=== PATIENT | male | born 1950 | race Caucasian/White ===

== ENCOUNTER 2016-07-15 11:57 | Outpatient (CLI) | payer MEDICARE, BC ==
[~2016-07-15] VITALS: Ht 182.9 cm; Wt 108.6 kg
[~2016-07-15 11:57] MED LIST: ASPI-917 PO; CLON0.1T PO; FEXO1TAB8 PO; GEMF600T3 PO; GLIP10TA9 PO; LOSA1TAB96 PO; METF500T4 PO; METO-277 PO; NORMAL SALINE 1,000 ML IV ONE; PANT40TA27 PO; RANI150T12 PO; SERT50TA12 PO; SUCR1ORA3 PO; TEST100V5; TRECIBA SQ
[2016-07-15 12:13] VITALS: Ht 182.9 cm; Wt 108.6 kg
[2016-07-15] MEDS ORDERED: INSU3INS3 SQ (12:43)
[2016-07-15] MEDS ORDERED: MAGN400C PO (12:43)
--- NOTE | 2016-07-15 12:53 | NUR ---
ADMIT PATIENT ADMITTED TO ROOM 122 AT THIS TIME. PATIENT AMBULATED TO ROOM. PATIENT VITALS ARE STABLE AND PATIENT IS ON ROOM AIR. PATIENT DENIES CP, NAUSEA, AND SOA. WILL CONTINUE TO MONITOR.
[2016-07-15 13:02] LABS: HCT - HEMATOCRIT 46.1 % (41-53); HGB - HEMOGLOBIN 15.2 GM/DL (13.5-17.5); MEAN CORPUSCULAR HGB 26.4 UUG (26-34); MEAN CORPUSCULAR VOLUME 80.2 UM3 (80-100); MEAN PLATELET VOLUME 10.6 UM3 (9.4-12.4); RED BLOOD COUNT 5.75 M/MM3 (4.50-5.90); WBC - WHITE BLOOD COUNT 10.8 T/MM3 (4.5-11.0)
[2016-07-15 13:08] LABS: ANION GAP 13 MEQ/L (5-15); BUN/CREATININE RATIO 20 RATIO (6-26); CALCIUM 9.1 MG/DL (8.4-10.2); CHLORIDE 103 MEQ/L (98-107); CO2 - CARBON DIOXIDE 25 MEQ/L (22-30); GLOMERULAR FILTRATION RATE 74; GLUCOSE 159 MG/DL (75-110); POTASSIUM 4.4 MEQ/L (3.6-5); SODIUM 141 MEQ/L (134-144)
[2016-07-15 13:18] LABS: BAND NEUTROPHILS # 0.1 T/MM3; EOSINOPHILS # (MANUAL) 0.1 T/MM3 (0-0.5); LYMPHOCYTES # (MANUAL) 3.8 T/MM3 (1-4.8); METAMYELOCYTES # 0.1 T/MM3; MONOCYTES # (MANUAL) 0.4 T/MM3 (0-0.8); REACTIVE LYMPHOCYTES # 0.2 T/MM3 (0-0); TOTAL CELLS COUNTED 100 %
[2016-07-15] MEDS ORDERED: LIDOCAINE 1% (10mg/ml) 30ml SDV ONE (13:28)
[2016-07-15] MEDS ORDERED: HEPARIN 1,000units in NS 500ml BAG IV ONE (13:28)
--- NOTE | 2016-07-15 14:38 | NUR ---
WENDY CM VISITED PT AND SPOUSE. CM EXPLAINED ROLE AND PROVIDED CONTACT INFORMATION. PT [place] [facility] [place] DENIES [place]S. PT IS AWARE TO CONTACT CM IF NEEDS ARISE.
[2016-07-15] MEDS ORDERED: FENTANYL 100mcg/2ml INJECTION ONE (15:04)
[2016-07-15] MEDS ORDERED: MIDAZOLAM 2mg/2ml INJECTION ONE (15:05)
[2016-07-15] MEDS ORDERED: VERAPAMIL 5mg/2ml INJECTION IV ONE (15:18)
[2016-07-15] MEDS ORDERED: NITROGLYCERIN 50mg/10ml INJECTION IV ONE (15:18)
[2016-07-15] MEDS ORDERED: ATROPINE 1 MG/ML VIAL IV PRN ×2 (15:30)
[2016-07-15] MEDS ORDERED: METOCLOPRAMIDE 10mg/2ml INJECTION IV PRN ×2 (15:30)
[2016-07-15] MEDS ORDERED: BISACODYL 5 MG E.C. TABLET PO PRN ×2 (15:30)
[2016-07-15] MEDS ORDERED: LORAZEPAM 1 MG TABLET PO PRN (15:30)
[2016-07-15] MEDS ORDERED: ACETAMINOPHEN 325 MG TABLET PO PRN ×2 (15:30)
[2016-07-15] MEDS ORDERED: MORPHINE SULFATE 4 MG SYRINGE IV PRN ×4 (15:30)
[2016-07-15] MEDS ORDERED: NITROGLYCERIN 0.4 MG SUBLINGUAL TABLET SL PRN ×2 (15:30)
[2016-07-15] MEDS ORDERED: LORAZEPAM 0.5 MG TABLET PO PRN (15:30)
[2016-07-15] MEDS ORDERED: HYDROCODONE/APAP 5 mg/325 mg TABLET PO PRN ×2 (15:30)
[2016-07-15] MEDS ORDERED: PROMETHAZINE 25 MG INJECTION IV PRN ×2 (15:30)
[2016-07-15] MEDS ORDERED: LORAZEPAM 2 MG/ML INJECTION IV PRN ×2 (15:30)
[2016-07-15] MEDS ORDERED: MILK OF MAGNESIA 30 ML SUSP PO PRN ×2 (15:30)
[2016-07-15] MEDS ORDERED: ONDANSETRON 4mg/2ml INJECTION IV PRN ×2 (15:30)
[2016-07-15] MEDS ORDERED: MAG-AL + SIM LIQUID 30 ML UDC PO PRN ×2 (15:30)
[2016-07-15] MEDS ORDERED: BISACODYL 10 MG SUPPOSITORY RECTALLY PRN ×2 (15:30)
[2016-07-15 16:00] VITALS: BP 135/62; PULSE 75; RESP 16; TEMP 97.2; O2SAT 99
[2016-07-15 16:15] VITALS: BP 130/62; PULSE 80; RESP 18; O2SAT 98
[2016-07-15 16:30] VITALS: BP 128/60; PULSE 75; RESP 16; O2SAT 94
[2016-07-15 16:45] VITALS: BP 137/67; PULSE 79; RESP 17; O2SAT 97
[2016-07-15 17:00] VITALS: BP 131/62; PULSE 67; RESP 16; O2SAT 98
--- NOTE | 2016-07-15 17:31 | NUR ---
REPORT REPORT GIVEN TO RECEIVING RN, THIS RN CALLED BACK TO CCU.
--- NOTE | 2016-07-15 17:55 | NUR ---
TR BAND REMOVAL TR BAND REMOVED FROM RIGHT WRIST. SITE APPEARS ASYMPTOMATIC. TISSUE SOFT. STRONG RADIAL PULSE. NO S/S OF BLEEDING OR HEMATOMA NOTED AT THIS TIME. GAUZE AND TEGADERM PRESSURE DRESSING APPLIED. SPLINT AND RESTRICTED EXTREMITY BAND APPLIED TO RIGHT WRIST.
--- NOTE | 2016-07-15 18:25 | NUR ---
DISMISSAL DISCHARGE INSTRUCTIONS, MEDICATION, AND TR BAND INSTRUCTIONS GIVEN AND DISCUSSED WITH PATIENT AND PATIENT'S SPOUSE. DISCUSSED S/S OF INFECTION, DISCUSSED CARE AT PUNCTURE SITE ON RIGHT WRIST. ALL QUESTIONS AND CONCERNS ANSWERED AT THIS TIME. IVL D/C, CATHER TIP INTACT. PATIENT INFORMED UP FOLLOW UP APPOINTMENT WITH DR. MAY. AMBULATORY TO ER ENTRANCE WITH NURSING STAFF AND DISMISSED PER PRIVATE OWN VEHICLE WITH SPOUSE.
--- NOTE | 2016-07-16 08:10 | CVPROF ---
DATE OF PROCEDURE July 15, [address] Chepe Mckinney The patient is a very pleasant 66-year-old gentleman with chest pressure and tightness suggestive of angina and was referred for further evaluation by cardiac catheterization and possible intervention. Informed consent was obtained after explaining the procedure and the potential risks to the patient who agreed to proceed with the procedure. PROCEDURE 1. Left heart catheterization. 2. Coronary angiography. 3. Left ventriculography. 4. Aortic root angiography to visualize the right coronary artery. TECHNIQUE The patient was prepped and draped in the usual sterile techniques. Conscious sedation was performed using Versed and fentanyl. 1% lidocaine was used for local anesthesia. Using modified Seldinger technique, arterial access was obtained into the right radial artery with placement of a 6-Amharic arterial sheath. 3000 units of heparin, 300 mcg of nitroglycerin, and 2.5 mg of verapamil were given through the arterial sheath. LEFT VENTRICULOGRAPHY Left ventriculography in single-plane DAVISON shallow projection showed normal LV systolic function with ejection fraction of about 65% with no mitral regurgitation or gradient across the aortic valve. LVEDP was about 12. CORONARY ANGIOGRAPHY Left main was free of significant lesions and bifurcated into left anterior descending and left circumflex arteries. Left anterior descending artery was a [id number] caliber vessel which wrapped around the apex and had no significant lesions except for minor irregularities. Diagonal artery was patent , however diagonal arterioles showed fistula to pulmonary artery. Right coronary artery had a large cornus which was patent. We had a hard time visualizing the right and therefore aortic root angiography was performed which showed the origin of the right coronary artery. Aortic root was normal with no evidence of dissection. Selective right coronary angiography showed patent right coronary artery with about 30% mid RCA stenosis. It was codominant. The patient tolerated the procedure well with no complications. IMPRESSION 1. Normal LV systolic function with ejection fraction of about 65%. 2. Mild coronary artery disease as described above. 3. 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 PLAN Will continue medical management for now. JESUS
== END 2016-07-15 18:25 | disposition home or self-care (01) ==
LOC: CATH 11:57 → SRG 11:59 → CATH 18:25
PROVIDERS: ATTEND Internal Medicine Cardiovascular Disease
DX: I25.10 Atherosclerotic heart disease of native coronary artery without angina pectoris (principal); I77.2 Rupture of artery; R07.2 Precordial pain; I70.201 Unspecified atherosclerosis of native arteries of extremities, right leg; Z98.61 Coronary angioplasty status; R94.31 Abnormal electrocardiogram [ECG] [EKG]; I10 Essential (primary) hypertension; F17.220 Nicotine dependence, chewing tobacco, uncomplicated; Z82.49 Family history of ischemic heart disease and other diseases of the circulatory system; Z79.82 Long term (current) use of aspirin; Z79.4 Long term (current) use of insulin; Z79.899 Other long term (current) drug therapy
CPT/HCPCS: 36415; 80048; 85007; 85027; 93005; 93458; C1769; C1887; C1893; J1644; J2250; J3010; J3490; J7030; Q9967